=== PATIENT | female | born 1960 | race American Indian/Alaskan Native ===

== ENCOUNTER 2020-07-06 13:13 | Outpatient (CLI) | payer OTHER | END 2020-07-06 13:14 | disposition home or self-care (01) | LOC: PF 13:13 | PROVIDERS: ATTEND Internal Medicine | DX: J45.909 Unspecified asthma, uncomplicated (principal); E11.9 Type 2 diabetes mellitus without complications; F43.10 Post-traumatic stress disorder, unspecified; F32.9 Major depressive disorder, single episode, unspecified | CPT/HCPCS: 94010; 94729 ==